=== PATIENT | female | born 1980 | race Caucasian/White ===

== ENCOUNTER 2017-02-19 12:26 | Emergency (ER) | payer OTHER ==
[~2017-02-19] VITALS: Wt 65.9 kg
[2017-02-19] MEDS ORDERED: CEPASTAT LOZENGE MT ONE (16:00)
--- NOTE | 2017-02-19 16:49 | RADRPT ---
PROCEDURE: Chest x-ray CLINICAL INDICATION: Cough TECHNIQUE: Chest single view COMPARISON: None FINDINGS: The heart is normal in size. The pulmonary vessels are normal in caliber. The lungs are clear. Th e costophrenic angles are sharp. The visualized bony thorax is unremarkable. IMPRESSION: No acute cardiopulmonary disease. RPTAT: HH .Fernando Ordoñez MD, Date Time Electronically viewed and signed by .Fernando Ordoñez MD, MD on 02/19/2017 16:48 .W/
[2017-02-19] MEDS ORDERED: BENZ1LOZ52 MM (17:20)
[2017-02-19] MEDS ORDERED: AZIT250T94 PO (17:20)
[2017-02-19] MEDS ORDERED: BENZ100C70 PO (17:20)
[2017-02-19] MEDS ORDERED: ALBU8.5H3 INH (17:20)
[2017-02-19 17:50] VITALS: BP 128/72; PULSE 88; RESP 18; TEMP 98.5
--- NOTE | 2017-02-19 19:31 | ERD ---
ER Documentation Chief Complaint Date/Time DATE: 02/19/17 TIME: 19:27 Chief Complaint cough HPI 37-year-old female patient with no significant past medical history presents to the ED complaining of a cough that started intermittently for 1 week. Reports that it is a dry cough. States that she has been taking TheraFlu and DayQuil. Denies any chest pain, shortness of breath, wheezing, abdominal pain, nausea, vomiting, diarrhea. Reports that her son is also sick with similar symptoms. Denies any recent traveling. Denies any leg swelling. ROS All systems reviewed and are negative except as per history of present illness. Medications Home Meds Active Scripts Benzocaine/Menthol* (Cepacol* Sore Throat Lozenges) 1 Each Lozenge, 1 EACH MM Q4H Y for SORE THROAT, #10 LOZENGE Prov:JOSE VELAZQUEZ PA-C 02/19/17 Benzonatate* (Tessalon Perle*) 100 Mg Capsule, 100 MG PO Q8H Y for COUGH, #20 CAP Prov:JOSE VELAZQUEZ PA-C 02/19/17 Albuterol Sulfate* (Proair HFA*) 8.5 Gm Hfa.aer.ad, 2 PUFF INH Q4, #1 INHALER Prov:JOSE VELAZQUEZ PA-C 02/19/17 Azithromycin* (Zithromax*) 250 Mg Tablet, 250 MG PO .ZPACK DIRECTED, #6 TAB TAKE 500 MG (2 TABS) THE FIRST DAY THEN 250 MG (1 TAB) DAYS 2-5 Prov:JOSE VELAZQUEZ PA-C 02/19/17 Allergies Allergies: Coded Allergies: No Known Allergy (Unverified , 09/07/14) PMhx/Soc History of Surgery: Yes (C SECTION ) Anesthesia Reaction: No Hx Neurological Disorder: No Hx Respiratory Disorders: Yes (ASTHMA ) Hx Cardiac Disorders: No Hx Psychiatric Problems: No Hx Miscellaneous Medical Probl: No Hx Alcohol Use: No Hx Substance Use: No Hx Tobacco Use: No Smoking Status: Never smoker Physical Exam Vitals Vital Signs Date Time Temp Pulse Resp B/P Pulse Ox O2 Delivery O2 Flow Rate FiO2 02/19/17 17:50 98.5 88 18 128/72 99 Room Air 02/19/17 12:36 99.1 103 20 125/78 98 Physical Exam Const: [id number]-[id number], well-nourished. In no acute distress. Head: Atraumatic, normocephalic Eyes: Normal Conjunctiva without injection. No purulent discharge. PERRL. EOMI ENT: Normal external ear. Ear canal without erythema. Tympanic membrane pearly marte without effusion or bulging. Nasal canal clear with normal turbinates. Moist oropharynx without tonsillar exudates. Non-erythematous pharynx. Uvula midline. No drooling. No trismus. Neck: Full range of motion. No meningismus. No cervical lymphadenopathy. Resp: Clear to auscultation bilaterally. No wheezing, rhonchi, rales, or crackles. No accessory muscle use. No retractions. Cardio: Regular rate and rhythm. No murmurs, rubs or gallops. Abd: Soft, non tender, non distended. Normal bowel sounds. No palpable masses. No rebound tenderness. No guarding. Skin: No petechiae or rashes Back: No midline tenderness. No CVA tenderness. Ext: No cyanosis, or edema. Neur: Awake and alert. Psych: Normal Mood and Affect Results 24 hrs Current Medications Medications (Trade) Dose Ordered Sig/Dariana Route PRN Reason Start Time Stop Time Status Last Admin Dose Admin Phenol (Cepastat Lozenge) 1 lozenge ONCE ONCE MT 02/19/17 16:00 02/19/17 16:01 DC 02/19/17 16:58 Procedures/MDM 37-year-old female patient with no sniffing a past medical history presents to the ED complaining of a cough that started intermittently for 1 week. Patient is afebrile and nontoxic-appearing. Patient was noted to have persistent cough. A throat lozenge which was given to patient here in the ED which improved her cough. CXR was ordered to further evaluate patient. Chest x-ray is negative for any pneumothorax, pleural effusion, pneumonia. PROCEDURE: Chest x-ray CLINICAL INDICATION: Cough TECHNIQUE: Chest single view COMPARISON: None FINDINGS: The heart is normal in size. The pulmonary vessels are normal in caliber. The lungs are clear. The costophrenic angles are sharp. The visualized bony thorax is unremarkable. IMPRESSION: No acute cardiopulmonary disease. Nasal swab for Bordetella pertussis was sent to the lab. Pending culture. Patient is afebrile and has normal vital signs. Patient's physical exam include lungs which were clear to auscultation and a normal pulse oximetry. There is a low suspicion for pneumonia, pneumothorax, mononucleosis, pulmonary embolism, epiglottitis, otitis media, otitis externa, viral/strep pharyngitis, sinusitis, peritonsillar abscess, mastoiditis, retropharyngeal abscess, meningitis, sepsis, acute abdomen or other emergent conditions. Fluids, rest, and symptomatic treatment are recommended for the management of patient's symptoms. This case was discussed with my supervising physician, Dr. Dorantes who agreed with the management and discharge plan. Discharge medications: Tessalon Perles, Pro-air, Zithromax, Cepacol Follow up with primary care physician in 1-2 days. Instructed patient to return to the ED sooner for any worsening symptoms. Patient's questions were answered. Patient understood and agreed with discharge plan. Patient discharged stable. Departure Diagnosis: Primary Impression: Cough Condition: Stable Patient Instructions: Pertussis (Whooping Cough): When to Go to Emergency, Cough, Chronic, Uncertain Cause, (Adult) Referrals: SHERRY CUELLAR (PCP) [facility] YOU HAVE RECEIVED A MEDICAL SCREENING EXAM AND THE RESULTS INDICATE THAT YOU DO NOT HAVE A CONDITION THAT REQUIRES URGENT TREATMENT IN THE EMERGENCY DEPARTMENT. FURTHER EVALUATION AND TREATMENT OF YOUR CONDITION CAN WAIT UNTIL YOU ARE SEEN IN YOUR DOCTORS OFFICE WITHIN THE NEXT 1-2 DAYS. IT IS YOUR RESPONSIBILITY TO MAKE AN APPOINTMENT FOR FOLOW-UP CARE. IF YOU HAVE A PRIMARY DOCTOR --you should call your primary doctor and schedule an appointment IF YOU DO NOT HAVE A PRIMARY DOCTOR YOU CAN CALL OUR PHYSICIAN REFERRAL HOTLINE AT IF YOU CAN NOT AFFORD TO SEE A PHYSICIAN YOU CAN CHOSE FROM THE FOLLOWING [facility] [address] [facility]. [facility] [address] [facility] [address] [facility] [address] [facility]. [facility] [address] [facility] [address] [facility] YOU HAVE RECEIVED A MEDICAL SCREENING EXAM AND THE RESULTS INDICATE THAT YOU DO NOT HAVE A CONDITION THAT REQUIRES URGENT TREATMENT IN THE EMERGENCY DEPARTMENT. FURTHER EVALUATION AND TREATMENT OF YOUR CONDITION CAN WAIT UNTIL YOU ARE SEEN IN YOUR DOCTORS OFFICE WITHIN THE NEXT 1-2 DAYS. IT IS YOUR RESPONSIBILITY TO MAKE AN APPOINTMENT FOR FOLOW-UP CARE. IF YOU HAVE A PRIMARY DOCTOR --you should call your primary doctor and schedule and appointment IF YOU DO NOT HAVE A PRIMARY DOCTOR YOU CAN CALL OUR PHYSICIAN REFERRAL HOTLINE AT . IF YOU CAN NOT AFFORD TO SEE A PHYSICIAN YOU CAN CHOSE FROM THE FOLLOWING [facility] INSTITUTIONS: [facility] [address] [place] [address] [facility] [address] [place], [place] [id number] [place] [address] [address] [place] [address] [facility] URGENT CARE/SPECIALTIES Additional Instructions: Call your primary care doctor TOMORROW for an appointment during the next 2-3 days.See the doctor sooner or return here if your condition worsens before your appointment time. JOSE VELAZQUEZ PA-C Feb 19, 2017 19:31 JOSE VELAZQUEZ PA-C Feb 19, 2017 19:31
== END 2017-02-19 17:55 | disposition home or self-care (01) ==
LOC: FTE 12:26
DX: R05 Cough (principal); J45.909 Unspecified asthma, uncomplicated
CPT/HCPCS: 71010; Z7502; Z7610; 87081

== ENCOUNTER 2019-01-10 07:54 | Emergency (ER) | payer OTHER ==
[~2019-01-10] VITALS: Ht 152.4 cm; Wt 80.1 kg
[~2019-01-10 07:54] MED LIST: ALBU8.5H8 INH; AZIT250T PO; BENZ-6 PO; BENZ1LOZ52 MM; CETI10CA PO; ERYT1OIN6 LEFT EYE
[2019-01-10 07:55] VITALS: BP 116/70; PULSE 75; RESP 18; Ht 152.4 cm; Wt 80.1 kg
[2019-01-10] MEDS ORDERED: ERYTHROMYCIN 1 GM OPH OINT LEFT EYE ONE (08:30)
== END 2019-01-10 08:34 | disposition home or self-care (01) ==
LOC: FTE 07:54
DX: H00.015 Hordeolum externum left lower eyelid (principal); J45.909 Unspecified asthma, uncomplicated
CPT/HCPCS: Z7502; Z7610; 99283